=== PATIENT | female | born 1995 | race Caucasian/White ===

== ENCOUNTER 2017-06-08 14:43 | Emergency (ER) | payer OTHER ==
[2017-06-08 14:58] VITALS: BP 118/70; PULSE 92; TEMP 98; BMI 25.4
--- NOTE | 2017-06-08 16:51 | PDOC ---
History of Present Illness - General Chief Complaint: Wound Stated Complaint: EAR INFECTION Time Seen by Provider: 06/08/17 16:40 History Source: Patient Exam Limitations: No Limitations - History of Present Illness Initial Comments: 06/08/17 16:58 My chief complaint: left ear swelling and redness with earring embedded History of present illness: Patient is a 22-year-old female with no significant medical history here today complaining of worsening swelling and redness to her left helix over the last few weeks. Patient reports having a piercing of her ear and had noticed that area started to get infected a few weeks ago. Patient noticed today that the back of her earring was embedded. Patient denies any fever. Patient reports that area is very tender. 06/08/17 17:00 Timing/Duration: getting worse (left helix of ear swelling, erythematous with earring embedded ) Severity: moderate Associated Symptoms: reports: denies symptoms Past History - Past Medical History Allergies/Adverse Reactions: Allergies Allergy/AdvReac Type Severity Reaction Status Date / Time No Known Allergies Allergy Verified 06/08/17 14:58 Home Medications: Ambulatory Orders Cephalexin [Keflex] 500 mg PO Q8H #20 capsule 06/08/17 - Psycho/Social/Smoking Cessation Hx Suicidal Ideation: No Smoking History: Never smoked Information on smoking cessation initiated: No Review of Systems - Review of Systems Able to Perform ROS?: Yes Constitutional: No: Symptoms Reported HEENTM: Yes: Other (left helix redness/tenderness and edema, earring embedded ) Respiratory: No: Symptoms reported Cardiac (ROS): No: Symptoms Reported ABD/GI: No: Symptoms Reported : No: Symptoms Reported Musculoskeletal: No: Symptoms Reported Integumentary: Yes: Erythema (left helix with edema, back of earring embedded ) Neurological: No: Symptoms reported *Physical Exam - Vital Signs Last Vital Signs Temp Pulse Resp BP Pulse Ox 98 F 92 H 18 118/70 98 06/08/17 14:55 06/08/17 14:55 06/08/17 14:55 06/08/17 14:55 06/08/17 14:55 - Physical Exam General Appearance: Yes: Appropriately Dressed Integumentary: positive: Other (erythema/edema left helix with tenderness) Neurologic: positive: Alert, Normal Response (left helix ), Respond to painful stimul (left helix ), Responsive Procedures - Consent Consent obtained: Verbal, From Patient - Additional Procedures Progress: 06/08/17 17:23 Left helix posteriorly with Betadine and then injected lidocaine 1% 2 mL, was able to apply pressure and back of ear ring was exposed and than removed both back of earring and earring , area irrigated it with normal saline 0.9% dried and Band-Aid applied Medical Decision Making - Medical Decision Making 06/08/17 17:00 Patient is a 22-year-old female with no significant medical history here today complaining of worsening swelling and redness to her left helix over the last few weeks. Patient reports having a piercing of her ear and had noticed that area started to get infected a few weeks ago. Patient noticed today that the back of her earring was embedded. Patient denies any fever. Patient reports that area is very tender. 06/08/17 17:00 left helix earring embedded with surrounding cellulitis plan: After numbing helix of left ear with lidocaine 1 % was able to apply pressure remove back of earring on left ear and then front of ear keflex 500 mg po now than q 8 hr for 7 days acetaminophen 1000 mg po now wound C & S 06/08/17 17:25 06/08/17 17:30 06/08/17 19:10 *DC/Admit/Observation/Transfer Diagnosis at time of Disposition: Infected embedded earring - Discharge Dispostion Disposition: HOME Condition at time of disposition: Stable - Patient Instructions Additional Instructions: Do Not reapply any earring cleanse left ear where earring was embedded with antibacterial soap and water pat dry Return to emergency room if any increased redness of the left ear area where earring was embedded or any increased swelling or fever Take ibuprofen or acetaminophen as needed as directed by professor of historical theology for pain Take antibiotics as prescribed and complete them Patient voiced understanding of discharge instructions and all questions were answered
[2017-06-08] MEDS ORDERED: LIDOCAINE HCL 1%, 10 MG/ML (20ML VIAL) ONE (16:53)
[2017-06-08] MEDS ORDERED: ACETAMINOPHEN 500 MG TABLET (FP) PO ONE (17:22)
[2017-06-08] MEDS ORDERED: CEPHALEXIN MONOHYDRATE 500 MG CAPSULE (UD) PO ONE (17:22)
[2017-06-08] MEDS ORDERED: CEPHALEXIN MONOHYDRATE 500 MG CAPSULE (UD) ONE (17:28)
[2017-06-08] MEDS ORDERED: ACETAMINOPHEN 500 MG TABLET (FP) ONE (17:28)
== END 2017-06-08 17:36 | disposition home or self-care (01) ==
LOC: JERFT 14:43
PROC: 09C1XZZ Extirpation of Matter from Left External Ear, External Approach (ICD-10-PCS; principal; 2017-06-08)
DX: S00.452A Superficial foreign body of left ear, initial encounter (principal); W45.8XXA Other foreign body or object entering through skin, initial encounter; Y93.9 Activity, unspecified; Y92.89 Other specified places as the place of occurrence of the external cause; Y99.9 Unspecified external cause status
CPT/HCPCS: 87070; 87186; 87205; 99281-25

== ENCOUNTER 2018-10-09 15:34 | Emergency (ER) | payer OTHER ==
[2018-10-09 15:52] VITALS: BP 119/68; PULSE 77; TEMP 97.9; BMI 28.3
--- NOTE | 2018-10-09 16:32 | PDOC ---
History of Present Illness - General Chief Complaint: Back Pain Stated Complaint: BACK PAIN Time Seen by Provider: 10/09/18 15:54 History Source: Patient - History of Present Illness Occurred: reports: last week Pain Location: reports: back Past History - Past Medical History Allergies/Adverse Reactions: Allergies Allergy/AdvReac Type Severity Reaction Status Date / Time No Known Allergies Allergy Verified 10/09/18 15:52 Home Medications: Ambulatory Orders Cephalexin [Keflex] 500 mg PO Q8H #20 capsule 06/08/17 COPD: No - Suicide/Smoking/Psychosocial Hx Smoking History: Never smoked Review of Systems - Review of Systems Constitutional: No: Fever ABD/GI: No: Nausea, Vomiting, Abdominal cramping : No: Dysuria, Flank Pain, Hematuria Neurological: No: Numbness, Tingling, Weakness *Physical Exam - Vital Signs Last Vital Signs Temp Pulse Resp BP Pulse Ox 97.9 F 77 18 119/68 99 10/09/18 15:50 10/09/18 15:50 10/09/18 15:50 10/09/18 15:50 10/09/18 15:50 - Physical Exam General Appearance: Yes: Appropriately Dressed. No: Apparent Distress HEENT: positive: Normal Voice Neck: positive: Supple Respiratory/Chest: negative: Respiratory Distress Gastrointestinal/Abdominal: positive: Soft. negative: Tender Musculoskeletal: positive: Vertebral Tenderness (to L mid back, c/o pain to site w/ forward bending). negative: CVA Tenderness Integumentary: positive: Dry, Warm Neurologic: positive: Fully Oriented, Alert, Normal Mood/Affect Moderate Sedation - Procedure Monitoring Vital Signs: Procedure Monitoring Vital Signs Temperature 97.9 F 10/09/18 15:50 Pulse Rate 77 10/09/18 15:50 Respiratory Rate 18 10/09/18 15:50 Blood Pressure 119/68 10/09/18 15:50 O2 Sat by Pulse Oximetry (%) 99 10/09/18 15:50 Medical Decision Making - Medical Decision Making 10/09/18 16:26 23-year-old yo F, no sig hx, here w/ back pain x 1 week. Patient reports pain to upper and mid back mostly 1 week, intermittent but constant today. Describes pain as soreness with intensity of 6 out of 10. Pain worse with range of motion. Not taking anything for pain. Denies any trauma or obvious inciting factors. No dysuria, hematuria, nausea, vomiting, fever or chills See exam M/l MSK back pain No red flags at this time -declines pain meds here -dc w/ OTC meds as needed and pmd f/u for further eval *DC/Admit/Observation/Transfer Diagnosis at time of Disposition: Back pain Qualifiers: Back pain location: back pain in unspecified location Chronicity: acute Back pain laterality: left Qualified Code(s): M54.9 - Dorsalgia, unspecified - Discharge Dispostion Disposition: HOME Condition at time of disposition: Good - Referrals Referrals: Radha Duong MD [Primary Care Provider] - - Patient Instructions Printed Discharge Instructions: DI for Back Strain or Sprain Additional Instructions: The source of your back pain is possibly muscular. If you continue to have pain , please follow-up with your primary doctor for further evaluation. In the meantime, take Motrin or Tylenol as needed until pain resolves - Post Discharge Activity
== END 2018-10-09 16:53 | disposition home or self-care (01) ==
LOC: JERFT 15:34
DX: M54.89 Other dorsalgia (principal)
CPT/HCPCS: 99281-25

== ENCOUNTER 2020-10-10 22:36 | Emergency (ER) | payer OTHER ==
[2020-10-10 22:40] VITALS: BP 119/66; PULSE 104; TEMP 97.8; BMI 29.2
[2020-10-10] MEDS ORDERED: ONDANSETRON 4 MG/2 ML VIAL IVPUSH ONE (23:38)
[2020-10-10] MEDS ORDERED: SODIUM CHLORIDE 1,000 ML IV STA (23:38)
[2020-10-11] MEDS ORDERED: ONDANSETRON 4 MG/2 ML VIAL ONE (00:12)
[2020-10-11] MEDS ORDERED: MORPHINE SULFATE 2 MG/ML VIAL ONE (00:12)
[2020-10-11] MEDS: morphine CARPU-JECT 2 MG/1 ML DISP.SYRIN IVPUSH ONE ×2 (00:31→02:23)
[2020-10-11 00:35] LABS: HEMATOCRIT 40.8 % (32.4-45.2); HEMOGLOBIN 13.6 GM/dL (10.7-15.3); MCHC 33.3 g/dl (32.0-36.0); MEAN PLT VOLUME 9.5 fl (7.5-11.1); PLATELET COUNT 250 K/MM3 (134-434); RBC 4.86 M/mm3 (3.60-5.2); RDW 14.8 % (11.6-15.6); WHITE BLOOD COUNT 10.6 K/mm3 (4.0-10.0)
[2020-10-11 01:02] LABS: POTASSIUM 3.7 mmol/L (3.5-5.1)
[2020-10-11 01:04] LABS: BLOOD UREA NITROGEN 8.8 mg/dL (7-18); CALCIUM 8.3 mg/dL (8.5-10.1)
[2020-10-11 01:05] LABS: ALBUMIN 3.3 g/dl (3.4-5.0)
[2020-10-11 01:08] LABS: CREATININE 0.4 mg/dL (0.55-1.3)
[2020-10-11 01:09] LABS: BILIRUBIN,TOTAL 0.2 mg/dL (0.2-1); TOT PROT 6.8 g/dl (6.4-8.2)
[2020-10-11 01:17] LABS: PH,URINE 7.5 (5.0-8.0); URINE APPEARANCE CLEAR; URINE BILIRUBIN NEGATIVE (NEGATIVE); URINE COLOR YELLOW; URINE GLUCOSE (UA) NEGATIVE (NEGATIVE); URINE KETONE 1+ (NEGATIVE); URINE LEUK ESTERASE NEGATIVE (NEGATIVE); URINE NITRITE NEGATIVE (NEGATIVE); URINE PROTEIN NEGATIVE (NEGATIVE); URINE UROBILINOGEN 0.2 mg/dL (0.2-1.0)
== END 2020-10-11 02:25 | disposition home or self-care (01) ==
LOC: JER 22:36
DX: O34.81 Maternal care for other abnormalities of pelvic organs, first trimester (principal); Z3A.01 Less than 8 weeks gestation of pregnancy
CPT/HCPCS: 36415; 76817-TC; 80053; 81003; 84703; 85027; 87086; 99285-25

== ENCOUNTER 2023-05-24 04:35 | Emergency (ER) | payer OTHER ==
[2023-05-24 04:42] VITALS: BP 136/88; PULSE 91; RESP 18; TEMP 97.9; BMI 28.3
[2023-05-24] MEDS ORDERED: ACETAMINOPHEN 1000 MG/100 ML BAG IVPB ONE (05:10)
[2023-05-24] MEDS ORDERED: SODIUM CHLORIDE 0.9% 500 ML INFUS.BAG IV ONE (05:10)
[2023-05-24] MEDS ORDERED: ONDANSETRON 4 MG/2 ML VIAL IVPUSH ONE (05:10)
[2023-05-24] MEDS ORDERED: ACETAMINOPHEN INJECTION 100 ML IVPB ONE (05:20)
[2023-05-24] MEDS ORDERED: ONDANSETRON 4 MG/2 ML VIAL ONE (05:23)
[2023-05-24 06:15] LABS: URINE APPEARANCE CLEAR; URINE BILIRUBIN NEGATIVE (NEGATIVE); URINE COLOR YELLOW; URINE GLUCOSE (UA) NEGATIVE (NEGATIVE); URINE KETONE NEGATIVE (NEGATIVE); URINE LEUK ESTERASE NEGATIVE (NEGATIVE); URINE NITRITE NEGATIVE (NEGATIVE); URINE PROTEIN NEGATIVE (NEGATIVE); URINE UROBILINOGEN 0.2 mg/dL (0.2-1.0)
[2023-05-24 06:16] LABS: BASO % 0.5 % (0-2.0); EOS % 1.4 % (0-4.5); HEMATOCRIT 43.9 % (32.4-45.2); HEMOGLOBIN 14.4 GM/dL (10.7-15.3); LYMPH % 22.5 % (8-40); MCHC 32.8 g/dl (32.0-36.0); MEAN CELL VOLUME 82.3 fl (80-96); MEAN PLT VOLUME 9.7 fl (7.5-11.1); MONO % 4.4 % (3.8-10.2); NEUT % 71.2 % (42.8-82.8); PLATELET COUNT 253 10^3/uL (134-434); RBC 5.33 M/mm3 (3.60-5.2); RDW 14.3 % (11.6-15.6)
[2023-05-24 06:30] LABS: POTASSIUM 4.3 mmol/L (3.5-5.1)
[2023-05-24 06:32] LABS: CALCIUM 9.3 mg/dL (8.5-10.1)
[2023-05-24 06:33] LABS: BLOOD UREA NITROGEN 15.3 mg/dL (7-18)
[2023-05-24 06:36] LABS: CREATININE 0.6 mg/dL (0.55-1.3)
[2023-05-24 06:38] LABS: BILIRUBIN,TOTAL 0.5 mg/dL (0.2-1); TOT PROT 7.9 g/dl (6.4-8.2)
== END 2023-05-24 07:06 | disposition home or self-care (01) ==
LOC: JER 04:35
PROC: 3E033NZ Introduction of Analgesics, Hypnotics, Sedatives into Peripheral Vein, Percutaneous Approach (ICD-10-PCS; principal; 2023-05-24)
PROC: 3E033GC Introduction of Other Therapeutic Substance into Peripheral Vein, Percutaneous Approach (ICD-10-PCS; 2023-05-24)
DX: R10.11 Right upper quadrant pain (principal); R68.83 Chills (without fever); R11.0 Nausea; R19.7 Diarrhea, unspecified; R10.31 Right lower quadrant pain; S39.012A Strain of muscle, fascia and tendon of lower back, initial encounter; X58.XXXA Exposure to other specified factors, initial encounter
CPT/HCPCS: 36415; 80053; 81003; 84484; 84703; 85025; 93005; 93010; 99284-25

== ENCOUNTER 2024-01-06 13:27 | Emergency (ER) | payer OTHER ==
[2024-01-06 13:38] VITALS: BP 110/66; PULSE 78; RESP 18; TEMP 98.2; BMI 29.2
[2024-01-06] MEDS ORDERED: AMOX TR/POT CLAV 875MG/125MG TABLETS (FP) ONE (14:30)
[2024-01-06] MEDS: AMOX TR/POT CLAV 875MG/125MG TABLETS (FP) PO ONE (14:38)
== END 2024-01-06 15:17 | disposition home or self-care (01) ==
LOC: JERFT 13:27
DX: J02.9 Acute pharyngitis, unspecified (principal); H92.01 Otalgia, right ear; R05.9 Cough, unspecified; H66.91 Otitis media, unspecified, right ear
CPT/HCPCS: 71046-TC-FY; 87651; 99284-25

== ENCOUNTER 2024-07-04 08:27 | Emergency (ER) | payer OTHER ==
[2024-07-04 08:34] VITALS: BP 115/68; PULSE 81; RESP 17; TEMP 97.9; BMI 30.2
[2024-07-04 09:55] LABS: URINE APPEARANCE CLEAR; URINE BILIRUBIN NEGATIVE (NEGATIVE); URINE COLOR YELLOW; URINE GLUCOSE (UA) NEGATIVE (NEGATIVE); URINE KETONE NEGATIVE (NEGATIVE); URINE LEUK ESTERASE NEGATIVE (NEGATIVE); URINE NITRITE NEGATIVE (NEGATIVE); URINE PROTEIN NEGATIVE (NEGATIVE); URINE UROBILINOGEN 0.2 mg/dL (0.2-1.0)
[2024-07-04 09:57] LABS: HCG,QUALITATIVE URINE Negative
[2024-07-04 11:34] LABS: BASO % 0.4 % (0-2.0); EOS % 0.6 % (0-4.5); HEMATOCRIT 43.5 % (32.4-45.2); LYMPH % 23.7 % (8-40); MCH 28.2 pg (25.7-33.7); MCHC 34.4 g/dl (32.0-36.0); MEAN PLT VOLUME 9.1 fl (7.5-11.1); MONO % 4.1 % (3.8-10.2); NEUT % 71.2 % (42.8-82.8); PLATELET COUNT 261 10^3/uL (134-434); RBC 5.31 M/mm3 (3.60-5.2); RDW 14.2 % (11.6-15.6)
[2024-07-04] MEDS ORDERED: ACETAMINOPHEN 325 MG TABLET (FP) ONE (12:01)
[2024-07-04] MEDS: ACETAMINOPHEN 325 MG TABLET (FP) PO ONE (12:02)
[2024-07-04 12:06] LABS: POTASSIUM 4.9 mmol/L (3.5-5.1)
[2024-07-04 12:15] LABS: ALBUMIN 3.6 g/dl (3.4-5.0)
[2024-07-04 12:18] LABS: CREATININE 0.5 mg/dL (0.55-1.3)
[2024-07-04 12:20] LABS: BILIRUBIN,TOTAL 0.5 mg/dL (0.2-1)
[2024-07-04 14:40] LABS: HIV INTERPRETATION NEGATIVE (NEGATIVE)
== END 2024-07-04 19:06 | disposition home or self-care (01) ==
LOC: JER 08:27
DX: D27.9 Benign neoplasm of unspecified ovary (principal); R10.32 Left lower quadrant pain; R11.0 Nausea
CPT/HCPCS: 36415; 74177-TC; 76830-TC; 80053; 81003; 84703; 85025; 86803; 87070; 87081; 87086; 87205; 87389; 99285-25; Q9967